=== PATIENT | female | born 1970 | race Caucasian/White ===

== ENCOUNTER 2024-12-26 04:04 | Emergency (ER) | payer BC, SELFPAY ==
[2024-12-26 04:11] VITALS: BP 166/84; PULSE 84; TEMP 36.8; O2SAT 99; BMI 27.6
[2024-12-26 04:32] LABS: Basophils Absolute Auto 0.1 10^3/uL (0.0-0.1); Basophils Percent Auto 0.5 % (0.2-2.0); Eosinophils Absolute Auto 0.2 10^3/uL (0.0-0.7); Eosinophils Percent Auto 1.4 % (0.9-7.0); Hemoglobin 14.8 g/dL (12.0-16.0); Immature Granulocytes Abs Auto 0.02 10^3/uL (0.00-0.03); Immature Granulocytes Pct Auto 0.2 % (0.0-0.5); Lymphocytes Absolute Auto 2.3 10^3/uL (1.2-3.8); Lymphocytes Percent Auto 19.9 % (20.5-60.0); Mean Corpuscular HGB Conc 34.4 g/dL (29.9-35.2); Mean Platelet Volume 9.8 fL (9.5-13.5); Monocytes Absolute Auto 0.8 10^3/uL (0.3-0.8); Monocytes Percent Auto 6.7 % (1.7-12.0); Neutrophils Absolute Auto 8.2 10^3/uL (1.4-6.5); Neutrophils Percent Auto 71.3 % (43.0-75.0); Platelet Count 258 10^3/uL (150-450); Red Blood Count 4.94 10^6/uL (4.20-5.40); Red Cell Distribution Width 12.2 % (11.0-15.0); White Blood Count 11.4 10^3/uL (4.0-11.0)
--- NOTE | 2024-12-26 04:33 | ED.GENADUL1 ---
HPI HPI - General Adult General Chief complaint: Urogenital-Female Stated complaint: LOWER ABDOMINAL PAIN Time Seen by Provider: 12/26/24 04:29 Source: patient Mode of arrival: walk-in History of Present Illness HPI narrative: supra pubic pain for about 12 hours. hematuria and urgency. No nausea. Took motrin and got temporary relief. No fever or chills. No flank pain Related Data Home Medications ?Medication ?Instructions ?Recorded ?Confirmed bupropion HCl 100 mg tablet,12 hr 100 mg PO DAILY 12/26/24 12/26/24 sustained-release (Wellbutrin SR) Previous Rx's ?Medication ?Instructions ?Recorded cephalexin 500 mg capsule 500 mg PO TID 7 days #21 caps 12/26/24 Allergies Allergy/AdvReac Type Severity Reaction Status Date / Time latex Allergy Intermediate Blister Verified 12/26/24 04:11 Opioid HPI Opioid Management Most Recent Opioid Data: Last Pain Scale 3 12/26/24, 06:23 Last ED Pain Assessment 12/26/24, 04:30 Last MAR Pain Assessment 12/26/24, 04:45 Review of Systems ROS Status of ROS 10 or more systems reviewed and unremarkable except as noted in history and below PFSH PFSH Social History Little interest or pleasure in doing things: not at all Feeling down, depressed, or hopeless: not at all Exam Constitutional Vital Signs, click to edit/add: Last Vital Signs Temp 98.3 F 12/26/24 04:11 Pulse 88 12/26/24 08:09 Resp 18 12/26/24 08:09 BP 128/88 12/26/24 08:09 Pulse Ox 98 12/26/24 08:09 O2 Del Method Room Air 12/26/24 05:18 Common normals: no apparent distress, average body habitus, oriented x3, no limitations, healthy appearing, alert and well nourished [facility] Common normals: normocephalic and head/scalp atraumatic Eye Common normals: PERRL and EOMs intact bilaterally Respiratory Common normals: normal respiratory effort, no retractions, no use of accessory muscles and clear to auscultation bilaterally Cardio Common normals: regular rate, regular rhythm, S1 normal heart sound and S2 normal heart sound GI Other: mild suprapubic tenderness. no guarding Extremity Common normals: normal to inspection and full ROM Neuro Common normals: oriented x3, CN's II-XII intact bilaterally, moves all extremities and no focal motor deficits Psych Appearance: grossly normal Course Vital Signs Vital signs: Vital Signs Temperature 98.3 F 12/26/24 04:11 Pulse Rate 84 12/26/24 04:11 Respiratory Rate 16 12/26/24 04:11 Blood Pressure 166/84 H 12/26/24 04:11 Pulse Oximetry 99 12/26/24 04:11 Oxygen Delivery Method Room Air 12/26/24 04:11 Temperature 98.3 F 12/26/24 04:11 Pulse Rate 88 12/26/24 08:09 Respiratory Rate 18 12/26/24 08:09 Blood Pressure 128/88 12/26/24 08:09 Pulse Oximetry 98 12/26/24 08:09 Oxygen Delivery Method Room Air 12/26/24 05:18 Medical Decision Making MDM Narrative Medical decision making narrative: presents with suprapubic pain, hematuria that started yesterday. DD acute cystitis , renal colic. UA with pyuria/hematuria. Rocephin ordered. CT abdomen/pelvis pending Lab Data Labs: Lab Results 12/26/24 12/26/24 Range/Units 04:22 04:47 WBC 11.4 H (4.0-11.0) 10^3/uL RBC 4.94 (4.20-5.40) 10^6/uL Hgb 14.8 (12.0-16.0) g/dL Hct 43.0 (36.0-48.0) % MCV 87.0 (81.0-99.0) fL MCH 30.0 (26.7-34.0) pg MCHC 34.4 (29.9-35.2) g/dL RDW 12.2 (11.0-15.0) % Plt Count 258 (150-450) 10^3/uL MPV 9.8 (9.5-13.5) fL Neut % (Auto) 71.3 (43.0-75.0) % Lymph % (Auto) 19.9 L (20.5-60.0) % [place] % (Auto) 6.7 (1.7-12.0) % Eos % (Auto) 1.4 (0.9-7.0) % Baso % (Auto) 0.5 (0.2-2.0) % Neut # (Auto) 8.2 H (1.4-6.5) 10^3/uL Lymph # (Auto) 2.3 (1.2-3.8) 10^3/uL [place] # (Auto) 0.8 (0.3-0.8) 10^3/uL Eos # (Auto) 0.2 (0.0-0.7) 10^3/uL Baso # (Auto) 0.1 (0.0-0.1) 10^3/uL Abs Immat Gran (auto) 0.02 (0.00-0.03) 10^3/uL Imm/Tot Granulo (auto) 0.2 (0.0-0.5) % Sodium 139 (136-145) mmol/L Potassium 4.0 (3.5-5.1) mmol/L Chloride 104 (98-107) mmol/L Carbon Dioxide 28.3 (21.0-32.0) mmol/L Anion Gap 10.7 BUN 25.0 H (7.0-18.0) mg/dL Creatinine 1.17 H (0.55-1.02) mg/dL Est GFR ( Amer) 59 L (>=60 mL/min/1.73m^2) Est GFR (Non-Af Amer) 48 L (>=60 mL/min/1.73m^2) BUN/Creatinine Ratio 21.4 Glucose 96 (74-106) mg/dL Calcium 9.1 (8.5-10.1) mg/dL Urine Color Lt. yellow (YELLOW) Urine Clarity Cloudy A (CLEAR) Urine pH 6.5 (5.0-9.0) Ur Specific [place] 1.020 (1.005-1.025) Urine Protein 100 A (NEG/TRACE) mg/dL Urine Glucose (UA) Negative (NEGATIVE) mg/dL Urine Ketones Negative (NEGATIVE) mg/dL Urine Occult Blood Large A (NEGATIVE) Urine Nitrite Negative (NEGATIVE) Urine Bilirubin Negative (NEGATIVE) Urine Urobilinogen 0.2 (0.2-1.0) EU/dL Ur Leukocyte Esterase Large A (NEGATIVE) Urine RBC 50-75 A (0-2) #/HPF Urine WBC >100 A (NONE SEEN) #/HPF Ur Squamous Epith Cells Few A (NONE/RARE) #/LPF Urine Crystals None seen (None Seen) #/HPF Urine Bacteria Large A (NONE SEEN) #/HPF Urine Casts None seen (NONE SEEN) #/LPF Urine Mucus Trace A (NONE SEEN) Ur Culture Indicated? Yes-[facility] [place] Discharge Plan Discharge Chief Complaint: Urogenital-Female Clinical Impression: Urinary tract infection, Constipation Patient Disposition: Home, Self-Care Time of Disposition Decision: 07:58 Condition: Good Mode of Transportation: Private Vehicle Prescriptions / Home Meds: New cephalexin 500 mg capsule 500 mg PO TID 7 Days Qty: 21 0RF No Action bupropion HCl [Wellbutrin SR] 100 mg tablet sustained-release 12 hr 100 mg PO DAILY Print Language: Urdu Instructions: Constipation (ED), Urinary Tract Infection in Women (ED) Additional Instructions: MiraLAX for constipation Referrals: Maribel Durán RN, HOME ORGANIZER [Primary Care Provider] - 1 week Discharge Date/Time: 12/26/24 08:11
[2024-12-26] MEDS: KETOROLAC TROMETHAMINE 30 MG/ML VIAL IVP (04:45)
[2024-12-26 04:46] LABS: Anion Gap 10.7; BUN Creatinine Ratio 21.4; Calcium 9.1 mg/dL (8.5-10.1); Carbon Dioxide 28.3 mmol/L (21.0-32.0); Chloride 104 mmol/L (98-107); Estimated GFR (African America 59 (>=60 mL/min/1.73m^2); Estimated GFR (Non-African Ame 48 (>=60 mL/min/1.73m^2); Glucose 96 mg/dL (74-106); Sodium 139 mmol/L (136-145)
[2024-12-26 04:52] LABS: Bilirubin Urine NEGATIVE (NEGATIVE); Blood Urine LARGE (NEGATIVE); Clarity Urine CLOUDY (CLEAR); Color Urine LT. YELLOW (YELLOW); Glucose Urine UA NEGATIVE (NEGATIVE); Ketones Urine NEGATIVE (NEGATIVE); Leukocyte Esterase Urine LARGE (NEGATIVE); Nitrite Urine NEGATIVE (NEGATIVE); Protein Urine 100 mg/dL (NEG/TRACE); Urobilinogen Urine 0.2 EU/dL (0.2-1.0); pH Urine 6.5 (5.0-9.0)
[2024-12-26] MEDS: 0.9 % SODIUM CHLORIDE 1,000 ML 1000 ML IV (04:55)
[2024-12-26 05:01] LABS: Urine Microscopic Indicated YES
[2024-12-26 05:09] LABS: Bacteria Urine LARGE #/HPF (NONE SEEN); RBC Urine 50-75 #/HPF (0-2); WBC Urine >100 #/HPF (NONE SEEN)
[2024-12-26 05:10] LABS: Cast Seen? NONE SEEN #/LPF (NONE SEEN); Crystals Seen? None Seen #/HPF (None Seen); Mucus Urine TRACE (NONE SEEN); Squamous Epithelial Cell Urine FEW #/LPF (NONE/RARE); Urine Culture Indicated YES-FRMC
[2024-12-26 05:18] VITALS: BP 139/71; PULSE 70; O2SAT 99
[2024-12-26] MEDS: MORPHINE SULFATE 2 MG/ML SYRINGE IV (06:23)
[2024-12-26] MEDS: CEFTRIAXONE 1,000 MG in 0.9 % SODIUM CHLORIDE 50 ML 100 MG IV (06:53)
--- NOTE | 2024-12-26 07:59 | ED_ITS ---
HPI HPI - General Adult General Chief complaint: Urogenital-Female Stated complaint: LOWER ABDOMINAL PAIN Time Seen by Provider: 12/26/24 04:29 Source: patient Mode of arrival: walk-in History of Present Illness HPI narrative: 54-year-old female presents to the emergency department and was initially seen by Dr. Murrell and signed out to me after discussing the case with him thoroughly. Please see his full history and physical exam. Related Data Home Medications ?Medication ?Instructions ?Recorded ?Confirmed bupropion HCl 100 mg tablet,12 hr 100 mg PO DAILY 03/1512/26/24 sustained-release (Wellbutrin SR) Previous Rx's ?Medication ?Instructions ?Recorded cephalexin 500 mg capsule 500 mg PO TID 7 days #21 cap s 12/26/24 Allergies Allergy/AdvReac Type Severity Reaction Status Date / Time latex Allergy Intermediate Blister Verified 12/26/24 04:11 Opioid HPI Opioid Management Most Recent Opioid Data: Last Pain Scale 3 Today, 06:23 Last ED Pain Assessment Today, 04:30 Last MAR Pain Assessment Today, 04:45 PFSH PFSH Social History Little interest or pleasure in doing things: not at all Feeling down, depressed, or hopeless: not at all Exam Constitutional Vital Signs, click to edit/add: Last Vital Signs Temp 98.3 F 12/26/24 04:11 Pulse 70 12/26/24 05:18 Resp 16 12/26/24 05:18 BP 139/71 12/26/24 05:18 Pulse Ox 99 12/26/24 05:18 O2 Del Method Room Air 12/26/24 05:18 Course Vital Signs Vital signs: Vital Signs Temperature 98.3 F 12/26/24 04:11 Pulse Rate 84 12/26/24 04:11 Respiratory Rate 16 12/26/24 04:11 Blood Pressure 166/84 H 12/26/24 04:11 Pulse Oximetry 99 12/26/24 04:11 Oxygen Delivery Method Room Air 12/26/24 04:11 Temperature 98.3 F 12/26/24 04:11 Pulse Rate 70 12/26/24 05:18 Respiratory Rate 16 12/26/24 05:18 Blood Pressure 139/71 12/26/24 05:18 Pulse Oximetry 99 12/26/24 05:18 Oxygen Delivery Method Room Air 12/26/24 05:18 Medical Decision Making MDM Narrative Medical decision making narrative: Urinalysis shows UTI. CT scan shows cystitis and constipation and a stone in each kidney. She was given IV Rocephin and is discharged home on Keflex and was recommended MiraLAX. Treatment diagnosis and follow-up were discussed with the patient. Differential Diagnosis Differential Diagnosis: UTI, constipation, diverticulitis, pyelonephritis Lab Data Lab results reviewed: Yes I reviewed the patient's lab results Labs: Lab Results 12/26/24 12/26/24 Range/Units 04:22 04:47 WBC 11.4 H (4.0-11.0) 10^3/uL RBC 4.94 (4.20-5.40) 10^6/uL Hgb 14.8 (12.0-16.0) g/dL Hct 43.0 (36.0-48.0) % MCV 87.0 (81.0-99.0) fL MCH 30.0 (26.7-34.0) pg MCHC 34.4 (29.9-35.2) g/dL RDW 12.2 (11.0-15.0) % Plt Count 258 (150-450) 10^3/uL MPV 9.8 (9.5-13.5) fL Neut % (Auto) 71.3 (43.0-75.0) % Lymph % (Auto) 19.9 L (20.5-60.0) % [place] % (Auto) 6.7 (1.7-12.0) % Eos % (Auto) 1.4 (0.9-7.0) % Baso % (Auto) 0.5 (0.2-2.0) % Neut # (Auto) 8.2 H (1.4-6.5) 10^3/uL Lymph # (Auto) 2.3 (1.2-3.8) 10^3/uL [place] # (Auto) 0.8 (0.3-0.8) 10^3/uL Eos # (Auto) 0.2 (0.0-0.7) 10^3/uL Baso # (Auto) 0.1 (0.0-0.1) 10^3/uL Abs Immat Gran (auto) 0.02 (0.00-0.03) 10^3/uL Imm/Tot Granulo (auto) 0.2 (0.0-0.5) % Sodium 139 (136-145) mmol/L Potassium 4.0 (3.5-5.1) mmol/L Chloride 104 (98-107) mmol/L Carbon Dioxide 28.3 (21.0-32.0) mmol/L Anion Gap 10.7 BUN 25.0 H (7.0-18.0) mg/dL Creatinine 1.17 H (0.55-1.02) mg/dL Est GFR ( Amer) 59 L (>=60 mL/min/1.73m^2) Est GFR (Non-Af Amer) 48 L (>=60 mL/min/1.73m^2) BUN/Creatinine Ratio 21.4 Glucose 96 (74-106) mg/dL Calcium 9.1 (8.5-10.1) mg/dL Urine Color Lt. yellow (YELLOW) Urine Clarity Cloudy A (CLEAR) Urine pH 6.5 (5.0-9.0) Ur Specific [place] 1.020 (1.005-1.025) Urine Protein 100 A (NEG/TRACE) mg/dL Urine Glucose (UA) Negative (NEGATIVE) mg/dL Urine Ketones Negative (NEGATIVE) mg/dL Urine Occult Blood Large A (NEGATIVE) Urine Nitrite Negative (NEGATIVE) Urine Bilirubin Negative (NEGATIVE) Urine Urobilinogen 0.2 (0.2-1.0) EU/dL Ur Leukocyte Esterase Large A (NEGATIVE) Urine RBC 50-75 A (0-2) #/HPF Urine WBC >100 A (NONE SEEN) #/HPF Ur Squamous Epith Cells Few A (NONE/RARE) #/LPF Urine Crystals None seen (None Seen) #/HPF Urine Bacteria Large A (NONE SEEN) #/HPF Urine Casts None seen (NONE SEEN) #/LPF Urine Mucus Trace A (NONE SEEN) Ur Culture Indicated? Yes-[facility] [place] Imaging Data CT scan - abdomen: Radiologist's impression: Urinary bladder wall thickening, moderate fecal load Discharge Plan Discharge Chief Complaint: Urogenital-Female Clinical Impression: Urinary tract infection, Constipation Patient Disposition: Home, Self-Care Time of Disposition Decision: 07:58 Condition: Good Mode of Transportation: Private Vehicle Prescriptions / Home Meds: New cephalexin 500 mg capsule 500 mg PO TID 7 Days Qty: 21 0RF No Action bupropion HCl [Wellbutrin SR] 100 mg tablet sustained-release 12 hr 100 mg PO DAILY Print Language: Liberian Instructions: Constipation (ED), Urinary Tract Infection in Women (ED) Additional Instructions: MiraLAX for constipation Referrals: Maribel Durán, DIRECT[employer] [Primary Care Provider] - 1 week
[2024-12-26 08:09] VITALS: BP 128/88; PULSE 88; O2SAT 98
== END 2024-12-26 08:11 | disposition home or self-care (01) ==
PROVIDERS: Internal Medicine; Emergency Provider Emergency Medicine; Family Provider Nurse Practitioner; PCP Nurse Practitioner
DX: N39.0 Urinary tract infection, site not specified (principal); K59.00 Constipation, unspecified
CPT/HCPCS: 36415; 74176; 80048; 81001; 85025; 87086; 87088; 87186; 96365; 96375; 99284; J0696; J1885; J2270